=== PATIENT | female | born 1950 | race Caucasian/White ===

== ENCOUNTER 2017-11-27 22:28 | Observation (INO) ==
[2017-11-27] MEDS ORDERED: *HR* FentaNYL (PF) 100 MCG/2 ML VIAL IVP ONE ×2 (22:37→23:42)
[2017-11-27] MEDS ORDERED: 0.9 % Sodium Chloride 1,000 ML IVC ONE (22:37)
[2017-11-27 23:01] LABS: Bilirubin,Urine Negative (Negative); Blood,Urine Small (Negative); Clarity,Urine Clear (Clear); Color,Urine Yellow (Yellow); Glucose,Urine (UA) Normal (Normal); Ketones,Urine Negative (Negative); Leukocyte Esterase,Urine Small (Negative); Nitrite,Urine Negative (Negative); Protein,Urine Negative (Neg-Trace); Specific Gravity,Urine 1.013 (1.010-1.025); Urobilinogen,Urine Normal (Normal)
[2017-11-27 23:04] LABS: Bacteria,Urine None Seen per hpf (None-Few); Hyaline Casts,Urine None Seen per lpf (None-Few); RBC,Urine 15-30 per hpf (0-3); Squamous Epithelial Cell,Urine Many per lpf (None-Few)
[2017-11-27 23:12] LABS: Basophils % 0.3 %; Eosinophils % 0.1 %; Hematocrit 34.6 % (35.3-44.9); Hemoglobin 11.4 g/dL (11.5-15.4); Immature Granulocytes % 0.4 % (0-4); Lymphocytes # 0.6 K/mcL (0.6-4.6); Lymphocytes % 7.5 %; Mean Corpuscular HGB Conc 32.9 g/dL (31.6-35.5); Mean Corpuscular Hemoglobin 33.1 pg (28.0-33.3); Mean Corpuscular Volume 100.6 fL (83.0-100.0); Mean Platelet Volume 8.3 fL (9.4-12.4); Monocytes # 0.5 K/mcL (0.0-1.3); Monocytes % 6.4 %; Neutrophils # 6.3 K/mcL (1.6-8.9); Platelet Count 167 K/mcL (140-400); Red Blood Count 3.44 M/mcL (3.82-4.97); Segmented Neutrophils % 85.3 %
[2017-11-27 23:28] LABS: Alanine Aminotransferase 15 Units/L (7-52); Albumin 4.1 g/dL (3.5-5.7); Albumin/Globulin Ratio 1.8 (1.1-2.2); Alkaline Phosphatase 57 Units/L (34-104); Aspartate Amino Transferase 17 Units/L (13-39); BUN/Creatinine Ratio 19 (6-26); Bilirubin,Direct 0.1 mg/dL (0.0-0.2); Bilirubin,Indirect 0.3 mg/dL (0.0-1.2); Bilirubin,Total 0.4 mg/dL (0.3-1.0); Blood Urea Nitrogen 14 mg/dL (8-23); Calcium 8.9 mg/dL (8.6-10.3); Carbon Dioxide 23 mEq/L (23-29); Chloride 104 mEq/L (98-107); Globulin 2.3 g/dL (2.4-3.5); Glucose 134 mg/dL (70-105); Lipase 11 Units/L (11-82); Osmolality,Calculated 284 (280-300); Potassium 4.1 mEq/L (3.5-5.1); Sodium 136 mEq/L (136-145); Total Protein 6.4 g/dL (6.4-8.9); eGFR For Non-African Americans > 60 (> 60)
--- NOTE | 2017-11-27 23:48 | Emergency Department Note ---
Disposition Clinical Impression: Ureterolithiasis Disposition: Admitted As Inpatient Condition: Good Time of Disposition: 23:46 Abdominal Pain HPI - General Chief Complaint: ED Abdominal Pain Stated Complaint: kidney stone Time Seen by Provider: 11/27/17 22:37 Source: patient Mode of arrival: private vehicle Limitations: no limitations Nursing Notes Reviewed: Yes Vital Signs Reviewed: Yes - History of Present Illness HPI Narrative: 66-year-old female presents with right flank pain with a recent diagnosis of kidney stone. States that 2 weeks ago she had a UTI. She was on a seven-day course of antibiotics. She then was having right flank pain. She was seen today at [facility] where she had a CT scan which she reports showed a 3 mm stone. States it was lower close to her bladder. She was sent home on Percocet. States the pain worsened this evening which prompted her to come here. She is nauseated and vomiting with pain otherwise no complaints. No dysuria or hematuria noted. No prior history of kidney stones. No other complaints. Pt Subjective Complaint: flank pain Onset (ago): week(s) Consistency: intermittent Location: R flank Pain Severity: severe Pain Scale: 10 Quality: stabbing Radiation: none Migration to: no migration Improves with: nothing Worsens with: nothing Associated symptoms: Reports: nausea, vomiting. Denies: diarrhea, fever, dysuria, hematuria Treatments prior to arrival: prescription analgesics - Related Data Home Medications Medication Instructions Recorded Confirmed Atorvastatin [Lipitor] 10 mg PO HS 11/28/17 11/28/17 Folic Acid 1 mg PO DAILY 11/28/17 11/28/17 Methotrexate [Otrexup] 8 tab PO TAPER 11/28/17 11/28/17 Multivit-Min/Iron/Folic Acid/K 1 each PO DAILY 11/28/17 11/28/17 [Adults Multivitamin Caplet] predniSONE [PredniSONE] 5 mg PO DAILY 11/28/17 11/28/17 Allergies Allergy/AdvReac Type Severity Reaction Status Date / Time celecoxib [From Celebrex] Allergy Swelling Verified 11/27/17 22:34 of Lip/Tongue/Throat Iodamide Allergy Swelling Verified 11/27/17 22:34 of Lip/Tongue/Throat diazepam [From Valium] AdvReac See Verified 11/27/17 22:34 Comments All systems ED: reviewed and negative except as stated. Constitutional: Denies: fever Gastrointestinal: Reports: abdominal pain, nausea, vomiting. Denies: diarrhea Genitourinary: Denies: dysuria, hematuria Abdominal Pain PMH - Past Medical History Medical history: Reports: arthritis, hyperlipidemia Female Surgical History: Reports: hysterectomy Psychiatric history: Reports: no psych history - Social History Smoking status: Never smoker Alcohol use: Reports: occasionally Drug use: Reports: none Physical Exam - General Limitations: no limitations General appearance: alert, in no apparent distress - Head Head exam: atraumatic, normocephalic - Eye Eye exam: Present: normal appearance - ENT ENT exam: normal exam - Neck Neck exam: Present: normal inspection - Chest Chest inspection: Present: normal inspection, symmetric chest wall rise - Respiratory Respiratory exam: Present: normal lung sounds bilaterally - Cardiovascular Cardiovascular exam: Present: regular rate, normal rhythm, normal heart sounds - Abdominal Exam Abdominal exam: Present: soft, tenderness (Mild right CVA tenderness.). Absent : distention, guarding, rigidity - Extremities Exam Extremities exam: Present: normal inspection, full ROM - Expanded Upper Extremity Exam Shoulder exam: Present: normal inspection, full ROM Arm exam: Present: normal inspection, full ROM Elbow exam: Present: normal inspection, full ROM Forearm/Wrist exam: Present: normal inspection, full ROM Hand exam: Present: normal inspection, full ROM - Expanded Lower Extremity Exam Hip/Pelvis exam: Present: normal inspection, full ROM Upper leg exam: Present: normal inspection, full ROM Knee exam: Present: normal inspection, full ROM Lower leg exam: Present: normal inspection, full ROM Ankle exam: Present: normal inspection, full ROM Foot/toe exam: Present: normal inspection, full ROM - Back Exam Back exam: Present: CVA tenderness (R) - Skin Skin exam: Present: warm, dry Course Course Narrative: Patient seen and examined. Nonsurgical exam. Plan to repeat labs and urinalysis. Pain control here. - Reevaluation(s) Reevaluation #1: Patient still in pain. Another dose of fentanyl ordered. Reevaluation #2: Still in pain. Doesn't feel comfortable going home. - Consultations Consultation #1: I spoke with Dr. Ojeda. Discussed patient's history exam imaging and labs. Agrees to see the patient in consultation. Vital Signs Temperature 97.6 F 11/27/17 22:30 Pulse Rate 82 11/27/17 22:30 Respiratory Rate 20 11/27/17 22:30 Blood Pressure 170/85 11/27/17 22:30 O2 Sat by Pulse Oximetry 99 11/27/17 22:30 Temperature 97.6 F 11/27/17 22:30 Pulse Rate 77 11/27/17 23:03 Respiratory Rate 20 11/28/17 02:00 Blood Pressure 112/55 11/28/17 02:00 O2 Sat by Pulse Oximetry 99 11/27/17 23:03 Oxygen Delivery Oxygen Delivery Room Air Abdominal Pain - MDM Narrative Medical decision making narrative: 66-year-old female presents to the ER due to right flank pain. Recently diagnosed with a kidney stone. Well-appearing here however continued pain despite multiple doses of medications. Labs and urinalysis reviewed. Case discussed with urology. Admitted to the hospital service for continued pain with urologic consultation. - Lab Data Lab results reviewed: Yes I reviewed the patient's lab results. Result diagrams: 11/27/17 22:37 11/27/17 22:37 Lab Results 11/27/17 11/27/17 11/27/17 Range/Units 22:37 22:37 22:49 WBC 7.3 (4.3-11.1) K/mcL RBC 3.44 L (3.82-4.97) M/mcL Hgb 11.4 L (11.5-15.4) g/dL Hct 34.6 L (35.3-44.9) % MCV 100.6 H (83.0-100.0) fL MCH 33.1 (28.0-33.3) pg MCHC 32.9 (31.6-35.5) g/dL RDW 15.0 H (11.5-14.5) % Plt Count 167 (140-400) K/mcL MPV 8.3 L (9.4-12.4) fL Immature Gran % 0.4 (0-4) % Seg Neutrophils % 85.3 % Lymphocytes % 7.5 % Monocytes % 6.4 % Eosinophils % 0.1 % Basophils % 0.3 % Neutrophils # 6.3 (1.6-8.9) K/mcL Lymphocytes # 0.6 (0.6-4.6) K/mcL Monocytes # 0.5 (0.0-1.3) K/mcL Eosinophils # 0.0 (0.0-0.6) K/mcL Basophils # 0.0 (0.0-0.2) K/mcL Sodium 136 (136-145) mEq/L Potassium 4.1 (3.5-5.1) mEq/L Chloride 104 (98-107) mEq/L Carbon Dioxide 23 (23-29) mEq/L BUN 14 (8-23) mg/dL Creatinine 0.75 (0.60-1.20) mg/dL Est GFR ( Amer) > 60 (> 60) Est GFR (Non-Af Amer) > 60 (> 60) BUN/Creatinine Ratio 19 (6-26) Glucose 134 H (70-105) mg/dL Calculated Osmolality 284 (280-300) Calcium 8.9 (8.6-10.3) mg/dL Total Bilirubin 0.4 (0.3-1.0) mg/dL Direct Bilirubin 0.1 (0.0-0.2) mg/dL Indirect Bilirubin 0.3 (0.0-1.2) mg/dL AST 17 (13-39) Units/L ALT 15 (7-52) Units/L Alkaline Phosphatase 57 (34-104) Units/L Serum Total Protein 6.4 (6.4-8.9) g/dL Albumin 4.1 (3.5-5.7) g/dL Globulin 2.3 L (2.4-3.5) g/dL Albumin/Globulin Ratio 1.8 (1.1-2.2) Lipase 11 (11-82) Units/L Urine Color Yellow (Yellow) Urine Clarity Clear (Clear) Urine pH 6.0 (5.0-8.0) pH Units Ur Specific [place] 1.013 (1.010-1.025) Urine Protein Negative (Neg-Trace) mg/dL Urine Glucose (UA) Normal (Normal) mg/dL Urine Ketones Negative (Negative) mg/dL Urine Blood Small H (Negative) Urine Nitrite Negative (Negative) Urine Bilirubin Negative (Negative) Urine Urobilinogen Normal (Normal) mg/dL Ur Leukocyte Esterase Small H (Negative) Urine Microscopic RBC 15-30 H (0-3) per hpf Urine Microscopic WBC 5-15 H (0-3) per hpf Ur Squamous Epith Cells Many H (None-Few) per lpf Urine Bacteria None Seen (None-Few) per hpf Hyaline Casts None Seen (None-Few) per lpf Ur Culture Indicated? NO. A (NO) - Radiology Data Radiology results reviewed: Yes I reviewed the patient's radiology results. S.B.A.R. - S.B.A.R. Situation: Demographics, MOA Background: Presenting Complaint, Relevant PMH, Meds, & Allergies Assessment: Course and respsone to treatment, Exam Concerns, Patient/Family Expectation, Pertinant Lab Results Recommendation: Barrier(s) to disposition, Recommendation based on pending studies, treatments, or consults S.B.A.R. Report Given to: Dr. Haider
--- NOTE | 2017-11-27 23:53 | Emergency Department Note ---
Disposition Clinical Impression: Ureterolithiasis Disposition: Admitted As Inpatient Condition: Good General Adult HPI - General Chief complaint: ED Abdominal Pain Stated complaint: kidney stone Time Seen by Provider: 11/27/17 22:37 Source: patient Mode of arrival: private vehicle Limitations: no limitations Nursing Notes Reviewed: Yes Vital Signs Reviewed: Yes - History of Present Illness Pain Scale: 10 - Related Data Home Medications Medication Instructions Recorded Confirmed Atorvastatin [Lipitor] 10 mg PO HS 11/28/17 11/28/17 Folic Acid 1 mg PO DAILY 11/28/17 11/28/17 Methotrexate [Otrexup] 8 tab PO TAPER 11/28/17 11/28/17 Multivit-Min/Iron/Folic Acid/K 1 each PO DAILY 11/28/17 11/28/17 [Adults Multivitamin Caplet] predniSONE [PredniSONE] 5 mg PO DAILY 11/28/17 11/28/17 Allergies Allergy/AdvReac Type Severity Reaction Status Date / Time celecoxib [From Celebrex] Allergy Swelling Verified 11/27/17 22:34 of Lip/Tongue/Throat Iodamide Allergy Swelling Verified 11/27/17 22:34 of Lip/Tongue/Throat diazepam [From Valium] AdvReac See Verified 11/27/17 22:34 Comments Constitutional: Denies: fever Gastrointestinal: Reports: abdominal pain, nausea, vomiting Past Medical History - Past Medical History Medical history: Reports: arthritis, hyperlipidemia Psychiatric history: Reports: no psych history - Social History Smoking Status: Never smoker Alcohol use: Reports: occasionally Drug use: Reports: none Physical Exam - General Limitations: no limitations General appearance: alert, in no apparent distress Course Vital Signs Temperature 97.6 F 11/27/17 22:30 Pulse Rate 82 11/27/17 22:30 Respiratory Rate 20 11/27/17 22:30 Blood Pressure 170/85 11/27/17 22:30 O2 Sat by Pulse Oximetry 99 11/27/17 22:30 Temperature 97.6 F 11/27/17 22:30 Pulse Rate 77 11/27/17 23:03 Respiratory Rate 20 11/28/17 02:00 Blood Pressure 112/55 11/28/17 02:00 O2 Sat by Pulse Oximetry 99 11/27/17 23:03 Oxygen Delivery Oxygen Delivery Room Air Medical Decision Making - Lab Data Lab results reviewed: Yes I reviewed the patient's lab results. Result diagrams: 11/27/17 22:37 08/02/18 22:37 Lab Results 11/27/17 11/27/17 11/27/17 Range/Units 22:37 22:37 22:49 WBC 7.3 (4.3-11.1) K/mcL RBC 3.44 L (3.82-4.97) M/mcL Hgb 11.4 L (11.5-15.4) g/dL Hct 34.6 L (35.3-44.9) % MCV 100.6 H (83.0-100.0) fL MCH 33.1 (28.0-33.3) pg MCHC 32.9 (31.6-35.5) g/dL RDW 15.0 H (11.5-14.5) % Plt Count 167 (140-400) K/mcL MPV 8.3 L (9.4-12.4) fL Immature Gran % 0.4 (0-4) % Seg Neutrophils % 85.3 % Lymphocytes % 7.5 % Monocytes % 6.4 % Eosinophils % 0.1 % Basophils % 0.3 % Neutrophils # 6.3 (1.6-8.9) K/mcL Lymphocytes # 0.6 (0.6-4.6) K/mcL Monocytes # 0.5 (0.0-1.3) K/mcL Eosinophils # 0.0 (0.0-0.6) K/mcL Basophils # 0.0 (0.0-0.2) K/mcL Sodium 136 (136-145) mEq/L Potassium 4.1 (3.5-5.1) mEq/L Chloride 104 (98-107) mEq/L Carbon Dioxide 23 (23-29) mEq/L BUN 14 (8-23) mg/dL Creatinine 0.75 (0.60-1.20) mg/dL Est GFR ( Amer) > 60 (> 60) Est GFR (Non-Af Amer) > 60 (> 60) BUN/Creatinine Ratio 19 (6-26) Glucose 134 H (70-105) mg/dL Calculated Osmolality 284 (280-300) Calcium 8.9 (8.6-10.3) mg/dL Total Bilirubin 0.4 (0.3-1.0) mg/dL Direct Bilirubin 0.1 (0.0-0.2) mg/dL Indirect Bilirubin 0.3 (0.0-1.2) mg/dL AST 17 (13-39) Units/L ALT 15 (7-52) Units/L Alkaline Phosphatase 57 (34-104) Units/L Serum Total Protein 6.4 (6.4-8.9) g/dL Albumin 4.1 (3.5-5.7) g/dL Globulin 2.3 L (2.4-3.5) g/dL Albumin/Globulin Ratio 1.8 (1.1-2.2) Lipase 11 (11-82) Units/L Urine Color Yellow (Yellow) Urine Clarity Clear (Clear) Urine pH 6.0 (5.0-8.0) pH Units Ur Specific [place] 1.013 (1.010-1.025) Urine Protein Negative (Neg-Trace) mg/dL Urine Glucose (UA) Normal (Normal) mg/dL Urine Ketones Negative (Negative) mg/dL Urine Blood Small H (Negative) Urine Nitrite Negative (Negative) Urine Bilirubin Negative (Negative) Urine Urobilinogen Normal (Normal) mg/dL Ur Leukocyte Esterase Small H (Negative) Urine Microscopic RBC 15-30 H (0-3) per hpf Urine Microscopic WBC 5-15 H (0-3) per hpf Ur Squamous Epith Cells Many H (None-Few) per lpf Urine Bacteria None Seen (None-Few) per hpf Hyaline Casts None Seen (None-Few) per lpf Ur Culture Indicated? NO. A (NO) - Radiology Data Radiology results reviewed: Yes I reviewed the patient's radiology results. CT report obtained from outside facility and showed a 3 mm stone at the right UVJ with moderate hydronephrosis. Attestation Statement - Attestation Attestation: I, Hollis Mcneil MD, personally evaluated this patient and discussed their management with the resident physician. I reviewed the resident's note and agree with the documented findings, medical decision making, and plan of care. 66-year-old female presents to the emergency department with a complaint of severe right flank pain radiating around to the right groin area. Patient states that she has had right flank pain for about a week and was initially treated as UTI. Earlier today the pain became severe and she was seen at [facility] and had a CT scan which showed a 3 mm stone in the distal right ureter. She received pain medications and her symptoms improved. She was discharged home with prescriptions but states not long after going home the pain returned and became more severe. On examination patient is a well-developed well-nourished well-appearing female in no acute distress. She is alert and oriented 3. There is no cyanosis or diaphoresis. Breath sounds are clear and equal bilaterally. Heart regular rate and rhythm. Abdomen soft with normal bowel sounds. There is mild right mid and lower abdominal tenderness and mild right CVA tenderness. Labs reviewed. CT report from the outside facility reviewed. Patient received pain medications here with improvement in her symptoms however still continues to have pain which she rates at a 5. She reports that she is uncomfortable going home because she is concerned that the pain is just going to worsen and she will have to come back. Dr. Aviles discussed with the urologist control electrician, Dr. Ojeda, and he recommended admission by the hospitalist with urology consultation. Hospitalist, Dr. Haider , was consulted and accepted admission of the patient.
[2017-11-28] MEDS ORDERED: Ondansetron 4 MG/2 ML VIAL IVP ONE (01:02)
[2017-11-28] MEDS ORDERED: Naloxone 0.4 MG/ML INJ IVP PRN (02:01)
[2017-11-28] MEDS: 0.9 % Sodium Chloride 1,000 ML IVC SCH ×2 (03:11→13:43)
--- NOTE | 2017-11-28 03:43 | Internal Med History&Physical ---
Date of Encounter: 11/28/17 Time of Encounter: 01:00 Internal Medicine - H&P: HPI Chief complaint: Right flank pain of 1 week duration History of present illness: Ms. Zamora is a 66 year old female with pmh of arthritis, dyslipidemia presenting with complaints of right flank pain for about one week that has been getting progressively worse. Pain is sharp, intermittent, 8-10/10 in intensity and radiating to the front of the abdomen. She denies any fevers, chills, hematuria or dysuria. She has had some nausea. She went to [facility] today where she had a CT scan showing a 3mm stone in the right ureter. She received some pain meds and was discharged home but pain became more severe at home and that' s why she returned to the ER. She has been given some pain meds here with some relief, but is uncomfortable going home. Urology was consulted in the ER. Past Med Surg Social Fam HX - Past Medical History Medical history: arthritis, hyperlipidemia Psychiatric history: no psych history - Past Surgical History Additional surgical history: ovarian cysts - Social History Smoking Status: Never smoker Alcohol use: occasionally Drug use: none Internal Medicine - H&P: Meds Atorvastatin [Lipitor] 10 mg PO HS 11/28/17 [History] Folic Acid 1 mg PO DAILY 11/28/17 [History] Methotrexate [Otrexup] 8 tab PO TAPER 11/28/17 [History] Multivit-Min/Iron/Folic Acid/K [Adults Multivitamin Caplet] 1 each PO DAILY 07/13 [History] predniSONE [PredniSONE] 5 mg PO DAILY 11/28/17 [History] 3 Allergy/AdvReac Type Severity Reaction Status Date / Time celecoxib [From Celebrex] Allergy Swelling Verified 11/27/17 22:34 of Lip/Tongue/Throat Iodamide Allergy Swelling Verified 11/27/17 22:34 of Lip/Tongue/Throat diazepam [From Valium] AdvReac See Verified 11/27/17 22:34 Comments All Systems PM: A 10-system review of systems was performed and is negative for pertinent findings except as documented above in the HPI. - Constitutional Constitutional: no chills, no fever(s), no night sweats - EENT Eyes: no change in vision, no discharge, no pain, no photophobia Ears: no ear discharge, no ear pain, no tinnitus Nose, mouth and throat: no dysphagia, no nasal discharge, no neck pain, no sore throat - Cardiovascular Cardiovascular ROS IM: no chest pain, no diaphoresis, no dyspnea, no lightheadedness, no palpitations, no syncope - Respiratory Respiratory: no cough, no dyspnea, no wheezing, no excessive phlegm production - Gastrointestinal Gastrointestinal: abdominal pain, no diarrhea, no hematemesis, no hematochezia, no melena, no nausea, no vomiting - Genitourinary Genitourinary: flank pain, no change in urinary stream, no dysuria, no hematuria - Musculoskeletal Musculoskeletal ROS IM: no numbness, no tingling - Integumentary Integumentary IM: no rash, no unusual bruising - Neurological Neurological ROS: no confusion, no convulsions, no focal weakness, no numbness, no tingling, no tremor(s) - Hematologic/Lymphatic Hematologic/Lymphatic: no easy bruising - Constitutional Vitals: Temp Pulse Resp BP Pulse Ox 98 F 70 14 107/72 97 11/28/17 03:07 11/28/17 03:07 11/28/17 03:07 11/28/17 03:07 11/28/17 03:07 - Head Head exam: Present: atraumatic, normocephalic - Eye Eye exam: Present: PERRL, conjuntiva pink, sclera anicteric Pupils: Present: PERRL - Neck Neck exam general surgery: Present: supple, trachea midline. Absent: lymphadenopathy - Respiratory Respiratory exam: Present: CTAB. Absent: accessory muscle use, rales, rhonchi, wheezes - Cardiovascular Cardiovascular exam: Present: RRR, +S1, +S2. Absent: diastolic murmur, gallop, rubs, systolic murmur - GI/Abdominal GI/Abdominal exam: Present: normal bowel sounds, soft, tenderness, no peritoneal signs. Absent: distended Additional comments: Has right flank pain - Extremities Exam Extremities exam: Present: warm, radial pulses palpable and symmetrical. Absent : calf tenderness, cyanotic, pedal edema - Neurological Exam Neurological exam: Present: CN II-XII intact, oriented X3, no focal deficits. Absent: pronater drift, facial droop, speech deficit - Skin Skin exam: Present: dry, intact Internal Med - H&P Results - Labs CBC & Chem 7: 11/27/17 22:37 11/27/17 22:37 - Assessment and plan (1) Ureterolithiasis Current Visit: Yes Status: Acute Assessment and plan: Pt has severe right flank pain and CT scan showing 3mm stone in the ureter. Denies any fevers or chills, has no leukocytosis. Has been started on IV fluids and pain control. Urology to assess in am for possible ureteroscopy if stone does not pass spontaneously (2) DVT prophylaxis Current Visit: Yes Status: Acute Assessment and plan: Heparin sc (3) Dyslipidemia Current Visit: Yes Status: Acute Assessment and plan: Continue atorvastatin - Time Spent With Patient Total time spent is greater than 50% in coordination of care (as documented) at patient's floor/unit and/or counseling patient:
[2017-11-28 04:44] LABS: Basophils % 0.4 %; Eosinophils % 0.8 %; Hematocrit 29.6 % (35.3-44.9); Immature Granulocytes % 0.4 % (0-4); Lymphocytes # 0.7 K/mcL (0.6-4.6); Mean Corpuscular HGB Conc 32.1 g/dL (31.6-35.5); Mean Corpuscular Hemoglobin 32.2 pg (28.0-33.3); Mean Corpuscular Volume 100.3 fL (83.0-100.0); Mean Platelet Volume 8.6 fL (9.4-12.4); Monocytes # 0.5 K/mcL (0.0-1.3); Monocytes % 9.2 %; Platelet Count 140 K/mcL (140-400); Red Blood Count 2.95 M/mcL (3.82-4.97); Red Cell Distribution Width 15.3 % (11.5-14.5); Segmented Neutrophils % 76.2 %
[2017-11-28 04:55] LABS: Hemoglobin 9.5 g/dL (11.5-15.4)
[2017-11-28 05:06] LABS: BUN/Creatinine Ratio 16 (6-26); Blood Urea Nitrogen 9 mg/dL (8-23); Calcium 8.4 mg/dL (8.6-10.3); Carbon Dioxide 23 mEq/L (23-29); Chloride 113 mEq/L (98-107); Glucose 102 mg/dL (70-105); Osmolality,Calculated 287 (280-300); Phosphorous 2.8 mg/dL (2.7-4.5); Potassium 3.9 mEq/L (3.5-5.1); Sodium 139 mEq/L (136-145); eGFR For Non-African Americans > 60 (> 60)
--- NOTE | 2017-11-28 07:17 | Urology - Consult Note ---
Date of Encounter: 11/28/17 Time of Encounter: 07:15 - Assessment and Plan (1) Acute cystitis without hematuria Current Visit: Yes Status: Acute Assessment and plan: I do not believe the patient had a active bladder infection. Her symptoms were more consistent with a distal ureteral stone. (2) Ureterolithiasis Current Visit: Yes Status: Acute Assessment and plan: I discussed with the patient treatment options regarding her possible distal 3 mm stone. Patient has been pain-free for the past 8 hours. KUB done this morning did not reveal any obvious ureteral calcification on the right side. I discussed with the patient options of repeating CT scan, exploration or continued observation. At this point we have elected to see how the patient does until this afternoon. If she remains pain-free or minimally pain-free and I believe the best option is to go home with increasing fluids. Patient did state that she voided multiple times in the emergency department without a strainer. Urology CN:HPI Consult date: 11/28/17 Reason for consult Urology: Other (right ureteral stone) Requesting physician: Suni Castillo History of present illness: Esther is a 66-year-old female with a history of recent trip to the emergency department for severe right-sided flank pain. Patient was found to have a distal 3 mm stone according to the patient. No report or CT was available for review. Patient states that the week prior to this she had been treated for a UTI by the urgent care. Her symptoms of urgency and frequency as well as bladder pressure had failed to improve. This is more consistent with a distal stone as compared to a UTI. Patient denies any nausea or vomiting. No fevers. Patient states that she has had 0 pain since arrival to the hospital after receiving pain medication in the emergency department. Past Med Surg Social Fam HX - Past Medical History Medical history: arthritis, hyperlipidemia Psychiatric history: no psych history - Past Surgical History Additional surgical history: ovarian cysts - Social History Smoking Status: Never smoker Alcohol use: occasionally Drug use: none - Family History Father History Unknown: Yes (patient denies any sig family history.) Medications and Allergies Atorvastatin [Lipitor] 10 mg PO HS 11/28/17 [History] Folic Acid 1 mg PO DAILY 11/28/17 [History] Methotrexate [Otrexup] 8 tab PO TAPER 11/28/17 [History] Multivit-Min/Iron/Folic Acid/K [Adults Multivitamin Caplet] 1 each PO DAILY 07/13 [History] predniSONE [PredniSONE] 5 mg PO DAILY 11/28/17 [History] 3 Allergy/AdvReac Type Severity Reaction Status Date / Time celecoxib [From Celebrex] Allergy Swelling Verified 11/27/17 22:34 of Lip/Tongue/Throat Iodamide Allergy Swelling Verified 11/27/17 22:34 of Lip/Tongue/Throat diazepam [From Valium] AdvReac See Verified 11/27/17 22:34 Comments Review of Systems - Constitutional no chills - Cardiovascular no chest pain - Respiratory no cough, no dyspnea - Gastrointestinal abdominal pain, no nausea, no vomiting - Genitourinary Genitourinary: no hematuria, no nocturia - Musculoskeletal back pain, no muscle weakness - Integumentary no erythema, no swelling, no unusual bruising - Neurological no confusion - Psychiatric no depression - Hematologic/Lymphatic no lymphadenopathy - Allergic/Immunologic no throat swelling Exam Initial Vital Signs Temp Pulse Resp BP Pulse Ox 97.6 F 82 20 170/85 99 11/27/17 22:30 11/27/17 22:30 11/27/17 22:30 11/27/17 22:30 11/27/17 22:30 General/Neuological: alert and oriented x 3 Eyes: normal pupils, non-icteric Neck: no lymphadenopathy noted, supple to touch Cardiovascular: RRR, no murmurs Respiratory: normal respiratory effort, clear bilaterally ABD: soft, nontender, no masses palpated, good bowel sounds Back: no pain on percussion bilaterally Skin: no rashes noted Musculoskeletal: normal gait, FROMx4 Urology Results - Labs 11/28/17 04:16 11/28/17 04:16 Abnormal lab results RBC 2.95 M/mcL (3.82-4.97) L 11/28/17 04:16 Hgb 9.5 g/dL (11.5-15.4) L D 11/28/17 04:16 Hct 29.6 % (35.3-44.9) L 11/28/17 04:16 MCV 100.3 fL (83.0-100.0) H 11/28/17 04:16 RDW 15.3 % (11.5-14.5) H 11/28/17 04:16 MPV 8.6 fL (9.4-12.4) L 11/28/17 04:16 Chloride 113 mEq/L (98-107) H 11/28/17 04:16 Creatinine 0.57 mg/dL (0.60-1.20) L 11/28/17 04:16 Calcium 8.4 mg/dL (8.6-10.3) L 11/28/17 04:16 Globulin 2.3 g/dL (2.4-3.5) L 11/27/17 22:37 Urine Blood Small (Negative) H 11/27/17 22:49 Ur Leukocyte Esterase Small (Negative) H 11/27/17 22:49 Urine Microscopic RBC 15-30 per hpf (0-3) H 11/27/17 22:49 Urine Microscopic WBC 5-15 per hpf (0-3) H 11/27/17 22:49 Ur Squamous Epith Cells Many per lpf (None-Few) H 11/27/17 22:49 Ur Culture Indicated? NO. (NO) A 11/27/17 22:49 Diabetes panel 11/28/17 Range/Units 04:16 Sodium 139 (136-145) mEq/L Potassium 3.9 (3.5-5.1) mEq/L Chloride 113 H (98-107) mEq/L Carbon Dioxide 23 (23-29) mEq/L BUN 9 (8-23) mg/dL Creatinine 0.57 L (0.60-1.20) mg/dL Glucose 102 (70-105) mg/dL Calcium 8.4 L (8.6-10.3) mg/dL Calcium panel 11/28/17 Range/Units 04:16 Calcium 8.4 L (8.6-10.3) mg/dL Phosphorus 2.8 (2.7-4.5) mg/dL Pituitary panel 11/28/17 Range/Units 04:16 Sodium 139 (136-145) mEq/L Potassium 3.9 (3.5-5.1) mEq/L Chloride 113 H (98-107) mEq/L Carbon Dioxide 23 (23-29) mEq/L BUN 9 (8-23) mg/dL Creatinine 0.57 L (0.60-1.20) mg/dL Glucose 102 (70-105) mg/dL Calcium 8.4 L (8.6-10.3) mg/dL Adrenal panel 11/28/17 Range/Units 04:16 Sodium 139 (136-145) mEq/L Potassium 3.9 (3.5-5.1) mEq/L Chloride 113 H (98-107) mEq/L Carbon Dioxide 23 (23-29) mEq/L BUN 9 (8-23) mg/dL Creatinine 0.57 L (0.60-1.20) mg/dL Glucose 102 (70-105) mg/dL Calcium 8.4 L (8.6-10.3) mg/dL All other labs normal. Consult Discharge Plan - Plan Referrals: NONE,PCP [Primary Care Provider] -
[2017-11-28] MEDS ORDERED: Folic Acid 1 MG TABLET PO SCH (09:00)
[2017-11-28] MEDS ORDERED: Multivit/Ca/Min/Fe/FA 1 TAB TABLET PO SCH (09:00)
[2017-11-28] MEDS ORDERED: Acetaminophen 325 MG TABLET PO PRN (10:43)
[2017-11-28 11:05] VITALS: BP 97/60
--- NOTE | 2017-11-28 12:39 | Internal Med Progress Note ---
Hospitalist Progress Note - Encounter Date of Encounter: 11/28/17 Time of Encounter: 10:00 - Subjective Interval History: she reports that she is feeling much better than last night. she has no abdominal pain. has urinated multiple times with out dysuria. strainer has been sued and no stone was seen. she reports that she would like to be discharged home today as she is feeling much better. I discussed with her that she could have possibly passed her stone in the ED as no strainer was used we cannot be 100% sure. i spoke to urology team and gave her their recommendations of CT scan vs watchful waiting. and she reports that since her symptoms have resolved she would like to go home to follow up with urology if symptoms worsened. - Exam Vitals: Temp Pulse Resp BP Pulse Ox 98.8 F 73 16 97/60 97 11/28/17 10:58 11/28/17 10:58 11/28/17 10:58 11/28/17 10:58 11/28/17 10:58 - Assessment and Plan (1) Ureterolithiasis Current Visit: Yes Status: Acute (2) DVT prophylaxis Current Visit: Yes Status: Acute (3) Dyslipidemia Current Visit: Yes Status: Acute - Time Spent with Patient Total time spent is greater than 50% in coordination of care (as documented) at patient's floor/unit and/or counseling patient: Internal Medicine: Result - Labs CBC & Chem 7: 11/28/17 04:16 11/28/17 04:16 Labs: Short CBC 11/28/17 Range/Units 04:16 WBC 5.2 (4.3-11.1) K/mcL Hgb 9.5 L D (11.5-15.4) g/dL Hct 29.6 L (35.3-44.9) % Plt Count 140 (140-400) K/mcL Neutrophils # 4.0 (1.6-8.9) K/mcL BMP 11/28/17 04:16 Sodium 139 Potassium 3.9 Chloride 113 H Carbon Dioxide 23 BUN 9 Creatinine 0.57 L Glucose 102 Calcium 8.4 L - Impressions Impressions KUB X-Ray 11/28/17 07:02 IMPRESSION: No radiographic evidence of nephrolithiasis. D/ / Adelso Thompson MD / Adelso Thompson MD Interpreting Provider: Adelso Thompson MD Consult Discharge Plan - Plan Referrals: NONE,PCP [Primary Care Provider] -
--- NOTE | 2017-11-28 12:42 | Discharge Summary ---
- NOTES TO OUTPATIENT PROVIDER Notes to Outpatient Provider: follow CBC. has macrocytic anemia. needs work up of anemia if not already done so. if again symptomatic referral to urology clinic Date of Encounter: 11/28/17 Time of Encounter: 12:40 - Discharge Diagnosis (1) Ureterolithiasis Priority: Primary Status: Acute (2) DVT prophylaxis Priority: Secondary Status: Acute (3) Dyslipidemia Priority: Secondary Status: Acute Hospital course: Ms. Zamora is a 66 year old female recent trip to the emergency department for severe right-sided flank pain. Patient was found to have a distal 3 mm stone according to the patient. No report or CT was available for review. Patient states that the week prior to this she had been treated for a UTI by the urgent care. Her symptoms of urgency and frequency as well as bladder pressure had failed to improve. urology was consulted and it was thought that This is more consistent with a distal stone as compared to a UTI. Patient denies any nausea or vomiting. No fevers. denies any dysuria, or frequency currently. UA was border line positive as per urology "I do not believe the patient had a active bladder infection. Her symptoms were more consistent with a distal ureteral stone." she has no abdominal pain. has urinated multiple times with out dysuria. strainer has been sued and no stone was seen. she reports that she would like to be discharged home today as she is feeling much better. I discussed with her that she could have possibly passed her stone in the ED as no strainer was used we cannot be 100% sure. i spoke to urology team and gave her their recommendations of CT scan vs watchful waiting. and she reports that since her symptoms have resolved she would like to go home to follow up with urology if symptoms worsened. Discharge discussed with: patient, nurse, hospice care sales consultant - Time Spent with Patient Total time spent providing and/or coordinating discharge services: Less than 30 minutes (25) - Discharge Medications Home Medications: Atorvastatin [Lipitor] 10 mg PO HS 11/28/17 [History] Folic Acid 1 mg PO DAILY 11/28/17 [History] Methotrexate [Otrexup] 8 tab PO TAPER 11/28/17 [History] Multivit-Min/Iron/Folic Acid/K [Adults Multivitamin Caplet] 1 each PO DAILY 07/13 [History] predniSONE [PredniSONE] 5 mg PO DAILY 11/28/17 [History] Allergies/Adverse Reactions: 3 Allergy/AdvReac Type Severity Reaction Status Date / Time celecoxib [From Celebrex] Allergy Swelling Verified 11/27/17 22:34 of Lip/Tongue/Throat Iodamide Allergy Swelling Verified 11/27/17 22:34 of Lip/Tongue/Throat diazepam [From Valium] AdvReac See Verified 11/27/17 22:34 Comments Date of admission: 11/28/17 02:01 Primary care physician: PCP NONE - Constitutional Vitals: Temp Pulse Resp BP Pulse Ox 98.8 F 73 16 97/60 97 11/28/17 10:58 11/28/17 10:58 11/28/17 10:58 11/28/17 10:58 11/28/17 10:58 Exam: General: Patient is alert, oriented, no acute distress, Head: atraumatic, normocephalic, Eye: normal appearance, PERRL, no scleral icterus, no conjunctival injection ENT: mucous membranes moist, normal external ear exam Neck: normal inspection, trachea midline, full ROM, no carotid bruits Chest: normal inspection, symmetric chest rise Respiratory: Good respiratory effort. Bilateral breath sounds are clear without wheezing, crackles, or rhonchi. Cardiovascular: Regular rate and rhythm. s1 and s2 No clicks, rubs, gallops, or murmors. Abdomen: Bowel sounds present normoactive x-4 quadrants. Abdomen is soft, nondistended. Epigastric tenderness. No guarding or rebound. No organomegaly noted, musculoskeletal: Spontaneously moving all extremities. no edema, no calf tenderness Skin: warm, dry, intact. Neuro: Alert and oriented x4. Sensation light touch intact. Cranial nerves 2- 12 is intact. Not aphasic, gait is steady, Psych: Patient's affect is normal - Patient Status Disposition: Home, Self-Care Condition: Good Overall status at discharge: patient is back to baseline - Discharge Instructions Instructions: Dehydration (DC) Follow Up With: Denilson Ojeda MD [Partnered Physician] - (Office is going to call patient with the time and date of the appointment. ) Dia Ojeda MD [Partnered Physician] - NONE,PCP [Primary Care Provider] - (Attempted to ask patient who her PCP was, patient stated "I don't have one" I asked if she would like for me to find her one and she stated "No". ) - Diet and Activity Activity: increase activity as tolerated Diet: advance to your usual diet
== END 2017-11-28 14:28 | disposition home or self-care (01) ==
LOC: EMEROO 22:28 → 3ANU 22:28 → SUATTDRO 11-28 02:01 → 3ANU 11-28 02:34
PROVIDERS: ADMIT Internal Medicine; ATTEND Internal Medicine